=== PATIENT | female | born 1985 | race Caucasian/White ===

== ENCOUNTER 2016-06-20 15:27 | Emergency (ER) | payer SELFPAY ==
[~2016-06-20] VITALS: Ht 157.5 cm; Wt 83.9 kg
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
--- NOTE | 2016-06-20 17:40 | NUR ---
RESTING QUIETLY, NAD NOTED.
--- NOTE | 2016-06-20 19:40 | NUR ---
Patient is resting comfortably in bed with eyes closed. Easily aroused. VSS
--- NOTE | 2016-06-20 22:39 | NUR ---
PT ASLEEP BUT EASILY AROUSABLE TO VERBAL STIMULUS. PT UNABLE TO STAY IN SEATED POSITION WITHOUT ASSISTANCE AND REPORTS DIZZINESS WHEN SITTING. WILL CONTINUE TO MONITOR. ON CONTINUOUS PULSE OX MONITOR.
--- NOTE | 2016-06-21 01:30 | NUR ---
PT OK TO DISCHARGE PER DR MISHRA. Patient discharged to home in stable condition. Written and verbal after care instructions given. Patient verbalizes understanding of instruction.Patient is awake and alert to self, day, and place. PT ambulatory with a steady gait
[2016-06-21 05:21] VITALS: BP 119/68
== END 2016-06-21 05:21 | disposition home or self-care (01) ==
LOC: ER 15:29
DX: F10.129 Alcohol abuse with intoxication, unspecified (principal)
CPT/HCPCS: 99283; A4606; Z7610

== ENCOUNTER 2016-09-23 22:39 | Emergency (ER) | payer MEDICAID ==
[~2016-09-23] VITALS: Ht 165.1 cm; Wt 74.4 kg
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
[2016-09-23] MEDS ORDERED: LORAZEPAM INJ 2 MG/ML VIAL ONE (22:47)
--- NOTE | 2016-09-23 22:55 | NUR ---
TEST SKEIN WINDER AT BEDSIDE TO DRAW BLOOD.
[2016-09-23] MEDS ORDERED: LORAZEPAM INJ 2 MG/ML VIAL IM ONE (23:00)
[2016-09-23 23:05] LABS: BASOPHILS % (AUTO) 0.4 % (0.0-2.0); EOSINOPHILS # (AUTO) 0.3 /CMM (0.0-0.7); EOSINOPHILS % (AUTO) 4.5 % (0.0-6.0); HEMATOCRIT 32 % (33-45); HEMOGLOBIN 11.1 g/dL (11.5-14.8); LYMPHOCYTES # (AUTO) 3.7 /CMM (0.8-4.8); LYMPHOCYTES % (AUTO) 51.6 % (20.0-44.0); MEAN CORPUSCULAR HEMOGLOBIN 32 PG (26.0-33.0); MEAN CORPUSCULAR HGB CONC 34 g/dl (31.0-36.0); MEAN CORPUSCULAR VOLUME 95 fL (82-100); MONOCYTES # (AUTO) 0.4 /CMM (0.1-1.30); MONOCYTES % (AUTO) 5.1 % (2.0-12.0); NEUTROPHILS # (AUTO) 2.8 /CMM (1.8-8.9); NEUTROPHILS % (AUTO) 38.4 % (43.0-81.0); PLATELET COUNT (AUTO) 245 /CMM (150-450); RDW COEFFICIENT OF VARIATION 13.3 (11.5-15.0); RED BLOOD CELL COUNT(AUTO) 3.43 MIL/uL (4.0-5.2); WHITE BLOOD COUNT (AUTO) 7.2 K/uL (4.3-11.0)
[2016-09-23 23:15] LABS: CALCIUM, SERUM 8.2 mg/dL (8.5-10.1); CREATININE 0.8 mg/dL (0.6-1.3); POTASSIUM 3.5 mmol/L (3.5-5.1)
[2016-09-23 23:23] LABS: ALBUMIN 3.4 g/dL (3.4-5.0); BILIRUBIN,TOTAL 0.1 mg/dL (0.2-1.0); SALICYLATE 3.1 mg/dL (2.8-20.0); TOTAL PROTEIN, SERUM 7.2 g/dL (6.4-8.2)
--- NOTE | 2016-09-23 23:50 | NUR ---
PATIENT SEEN SLEEPING COMFORTABLY AT BEDSIDE. ONGOING VS MONITORING.
[2016-09-24 00:18] LABS: APPEARANCE,URINE CLEAR (CLEAR); BILIRUBIN,URINE NEGATIVE (NEGATIVE); BLOOD, URINE 3+ Ery/uL (NEGATIVE); KETONES,URINE NEGATIVE (NEGATIVE); LEUKOCYTE ESTERASE ,URINE NEGATIVE (NEGATIVE); NITRITE, URINE NEGATIVE (NEGATIVE); PH,URINE 6.5 (5.0-8.0); PROTEIN,URINE NEGATIVE (NEGATIVE); UGLUCOSE NEGATIVE (NEGATIVE); UROBILINOGEN,URINE 0.2 EU/dL (0.2)
[2016-09-24 00:19] LABS: PREGNANCY TEST URINE QUAL NEGATIVE (NEGATIVE)
[2016-09-24 00:20] LABS: COLOR,URINE STRAW (YELLOW)
[2016-09-24 00:29] LABS: BACTERIA,URINE None seen /HPF (None Seen); SQUAMOUS EPITHELIAL CELL,UR Few /HPF (None Seen); WBC,URINE NONE SEEN /HPF (0-3)
--- NOTE | 2016-09-24 05:39 | NUR ---
Patient discharged to home in stable condition. Written and verbal after care instructions given. Patient verbalizes understanding of instruction. PT AMBULATED OUT WITH A STEADY GAIT. PT TOOK HER ACI, BUT DID NOT SIGN D/C PAPERWORK. VSS.
[2016-09-24 05:40] VITALS: BP 121/87
== END 2016-09-24 05:41 | disposition home or self-care (01) ==
LOC: ER 22:41
DX: F19.10 Other psychoactive substance abuse, uncomplicated (principal)
CPT/HCPCS: 36415; 80048; 80076; 80305; 80329; 81001; 84703; 85025; 96372; 99284; A4606; G0480 ×2; J2060; Z7610; 81000-TC